=== PATIENT | male | born 1975 | race Caucasian/White ===

== ENCOUNTER → 2020-12-23 14:37 | Outpatient (BNV) | payer OTHER, SELFPAY | PROVIDERS: PCP Physician Assistant; Visit Provider Internal Medicine Medical Oncology | DX: C81.90 Hodgkin lymphoma, unspecified, unspecified site (principal) | CPT/HCPCS: 99213; 99214 ==

== ENCOUNTER 2021-03-27 15:33 | Outpatient (REF) | payer OTHER, SELFPAY ==
[2021-03-27 16:59] LABS: Basophils Percent Auto 0.4 % (0-2); Hemoglobin 15.8 g/dl (14.0-18.0); Imm Gran Abs Auto 0.03 X10*3/uL (0.00-0.03); Imm Gran Pct Auto 0.4 % (0.0-0.4); MANUAL DIFF FLAG SCAN; Mean Corpuscular Volume 92.4 fL (80-98); Monocytes Percent Auto 7.4 % (2-11); PLT CLUMP 1; SCAN SMEAR FLAG 1
[2021-03-27 17:01] LABS: Eosinophils Absolute Auto 0.1 X10*3/uL (0.0-0.4); Eosinophils Percent Auto 0.9 % (0-4); Hematocrit 46.1 % (42-52); Lymphocytes Absolute Auto 1.9 X10*3/uL (1.2-4.9); Lymphocytes Percent Auto 22.5 % (20-40); Mean Corpuscular HGB Conc 34.3 g/dl (31.0-36.0); Mean Corpuscular Hemoglobin 31.7 pg (27.0-33.0); Mean Platelet Volume 10.4 fL (9.4-12.4); Monocytes Absolute Auto 0.6 X10*3/uL (0.1-1.2); Neutrophils Absolute Auto 5.6 X10*3/uL (2.0-8.3); Neutrophils Percent Auto 68.4 % (45-73); Platelet Count 119 X10*3/uL (160-400); Red Blood Count 4.99 X10*6/uL (4.60-5.80); Red Cell Distribution Width 12.6 % (11.0-16.0); White Blood Count 8.2 X10*3/uL (4.8-10.8)
[2021-03-27 17:27] LABS: Alanine Aminotransferase 73 U/L (0-40); Albumin Level 4.2 g/dL (3.5-5.0); Alkaline Phosphatase 156 U/L (39-117); Anion Gap 14 (12-20); Aspartate Amino Transferase 81 U/L (5-37); Blood Urea Nitrogen 16 mg/dL (9-16); Calcium 9.3 mg/dL (8.4-10.2); Carbon Dioxide 25 mmol/L (22-29); Chloride 105 mmol/L (96-108); Estimated Glomerular Filt Rate > 60; Glucose Random 85 mg/dL (60-115); Lactate Dehydrogenase 276 U/L (118-273); Potassium 4.3 mmol/L (3.3-5.1); Sodium 140 mmol/L (135-145); Total Protein 7.1 g/dL (6.5-8.0)
[2021-03-27 17:53] LABS: SLIDE REVIEW VERIFIED
== END 2021-03-27 15:34 | disposition home or self-care (01) ==
LOC: HO.LAB 15:33
PROVIDERS: PCP Physician Assistant; Visit Provider Internal Medicine Medical Oncology
DX: D69.6 Thrombocytopenia, unspecified (principal); C81.90 Hodgkin lymphoma, unspecified, unspecified site
CPT/HCPCS: 36415; 80053; 83615; 85025

== ENCOUNTER 2022-03-26 16:03 | Outpatient (REF) | payer OTHER, SELFPAY ==
[2022-03-27 13:32] LABS: H Pylori Breath Test Positive (Negative)
== END 2022-03-26 16:04 | disposition home or self-care (01) ==
LOC: HO.LNP 16:03
PROVIDERS: Visit Provider Physician Assistant
DX: A04.8 Other specified bacterial intestinal infections (principal)
CPT/HCPCS: 83013

== ENCOUNTER 2022-04-05 06:14 | Outpatient (REF) | payer OTHER, SELFPAY ==
[2022-04-05 07:19] LABS: Hematocrit 49.9 % (42.0-52.0); Hemoglobin 17.5 g/dl (14.0-18.0); Mean Corpuscular HGB Conc 35.1 g/dl (31.0-36.0); Mean Corpuscular Hemoglobin 32.1 pg (27.0-33.0); Mean Corpuscular Volume 91.4 fL (80.0-98.0); Mean Platelet Volume 10.2 fL (9.4-12.4); Platelet Count 106 X10*3/uL (160-400); Red Blood Count 5.46 X10*6/uL (4.60-5.80); White Blood Count 6.8 X10*3/uL (4.8-10.8)
[2022-04-05 07:22] LABS: Estimated Average Glucose 100 mg/dL; Hemoglobin A1c % 5.1 %
[2022-04-05 07:47] LABS: Alanine Aminotransferase 145 U/L (0-40); Albumin Level 4.5 g/dL (3.5-5.0); Alkaline Phosphatase 125 U/L (39-117); Anion Gap 15 (12-20); Aspartate Amino Transferase 191 U/L (5-37); Bilirubin Total 1.5 mg/dL (0.0-1.0); Blood Urea Nitrogen 16 mg/dL (9-16); Calcium 9.6 mg/dL (8.4-10.2); Carbon Dioxide 27 mmol/L (22-29); Chloride 101 mmol/L (96-108); Cholesterol 228 mg/dL; Estimated Glomerular Filt Rate > 60; Glucose Fasting 108 mg/dL (60-99); HDL Cholesterol 53 mg/dL; LDL Cholesterol Calculated 156 mg/dl; Potassium 3.2 mmol/L (3.3-5.1); Sodium 140 mmol/L (135-145); Triglycerides 99 mg/dL
[2022-04-05 08:12] LABS: Prostate Specific Antigen Scr 0.35 ng/mL (<0.05-4.0); TSH reflex Free T4 3.94 uIU/mL (0.32-4.0)
[2022-04-05 08:19] LABS: Creatinine Urine 191.66 mg/dL; Microalbum/Creatinine Ratio Ur 131.4 ug/mg cr
== END 2022-04-05 06:15 | disposition home or self-care (01) ==
LOC: HO.LAB 06:14
PROVIDERS: PCP Physician Assistant; Visit Provider Physician Assistant
DX: Z12.5 Encounter for screening for malignant neoplasm of prostate (principal); I10 Essential (primary) hypertension; E66.01 Morbid (severe) obesity due to excess calories; Z68.41 Body mass index [BMI] 40.0-44.9, adult
CPT/HCPCS: 36415; 80053; 80061; 82043; 83036; 84153; 84443; 85027

== ENCOUNTER 2022-08-10 09:52 | Day surgery (SDC) | payer OTHER, SELFPAY ==
[2022-08-07 10:39] VITALS: BMI 41.6
--- NOTE | 2022-08-09 12:06 | HO.ANESPROP2 ---
Documented by User: Chary Franz NP 08/09/22 12:07 HPI - Anesthesia Eval Consult details Narrative: 47yo M for Upper Endoscopy and Colonoscopy PMFSH Active Problems Active Problems: All Active Problems (Updated 04/10/22 @ 15:07 by Tigre Richard PA-C) Umbilical hernia (Acute) Inguinal hernia (Acute) H. pylori infection (Acute) Encounter for screening colonoscopy (Acute) Postprandial abdominal bloating (Acute) Obese (Acute) RLQ abdominal pain (Acute) Annual physical exam (Acute) HTN (hypertension) (Acute) Gout attack (Acute) Hodgkins lymphoma (Acute) Past Medical History Medical History Hx of lymphoma, non-Hodgkins Family History Family History Mother Diabetes Father Hypertension Surgical History Surgical History History of carpal tunnel surgery History of surgery on left wrist Social History Social History Household Members Other:: Housing: House Alcohol intake: current Alcohol intake frequency: holidays/special occasions only Alcohol type: beer Patient Tobacco Use Status: Never used Tobacco e-Cigarette/Vaping Use: Never Used Use of substances other than those prescribed or required for medical reasons: No Are you DNR?: No Advance Directives: No Advance Directives Information Provided: Yes Current occupational status: employed Current occupation: [employer] Cognitive needs: No Hearing needs: No Vision needs: No Meds Allergies Allergy/AdvReac Type Severity Reaction Status Date / Time No Known Allergies Allergy Verified 04/10/22 14:59 Exam Exam Date and Time: August 09, 2022 1206 Height,Weight and Vital Signs: Height 5 ft 7 in Weight 120.656 kg Pertinent Lab Results Pertinent Lab Results: Laboratory Tests 04/05/22 04/05/22 06:33 06:33 WBC 6.8 Hgb 17.5 Hct 49.9 Plt Count 106 L Sodium 140 Potassium 3.2 L D Chloride 101 Carbon Dioxide 27 BUN 16 Creatinine 1.09 Assessment and Plan Assessment Anesthesia Assessment: Chart Reviewed Documented by User: Chiquita Woods MD 08/10/22 10:50 PMFSH Active Problems Active Problems: All Active Problems (Updated 04/10/22 @ 15:07 by Tigre Richard PA-C) Umbilical hernia (Acute) Inguinal hernia (Acute) H. pylori infection (Acute) Encounter for screening colonoscopy (Acute) Postprandial abdominal bloating (Acute) Obese (Acute)- BMI 38.5 RLQ abdominal pain (Acute) Annual physical exam (Acute) HTN (hypertension) (Acute) Gout attack (Acute)- meds prn Hodgkins lymphoma (Acute) Snores. Denies ELAN but never had sleep study Past Medical History Medical History Hx of lymphoma, non-Hodgkins Family History Family History Mother Diabetes Father Hypertension Family history of problems with anesthesia: No Surgical History Surgical History History of carpal tunnel surgery History of surgery on left wrist History of Problems with Anesthesia: No Social History Social History Household Members Other:: Housing: House Alcohol intake: current Alcohol intake frequency: holidays/special occasions only Alcohol type: beer Patient Tobacco Use Status: Never used Tobacco e-Cigarette/Vaping Use: Never Used Use of substances other than those prescribed or required for medical reasons: No Are you DNR?: No Advance Directives: No Advance Directives Information Provided: Yes Current occupational status: employed Current occupation: [employer] Cognitive needs: No Hearing needs: No Vision needs: No Meds Allergies Allergy/AdvReac Type Severity Reaction Status Date / Time No Known Allergies Allergy Verified 04/10/22 14:59 Exam Height,Weight and Vital Signs: Height 5 ft 7 in Weight 120.656 kg Vital Signs Temp Pulse Resp BP Pulse Ox O2 Del Method 08/10/22 10:15 99.1 F 98 18 194/103 H 100 Room Air Airway Mallampati Class: III TM Dist: >3cm Neck ROM: Full Loose/Missing/Broken Teeth: No (Denies broken or loose teeth) Heart: RRR Lungs: CTAB Assessment and Plan Assessment Anesthesia Assessment: Anesthesia Plan Discussed Final Anesthetic Review Family History of Problems with Anesthesia: No History of Problems with Anesthesia: No NPO: Yes ASA Class: III Final Preanesthetic Review: No Changes in Pt Med Stat, Meds/Allgs Chart Reviewed, Consent Obtained/Reviewed and Anes Risks/Benef Reviewed Patient Risk: Intermediate Procedure Risk: Low Assessment/Block/Sedation in SS: Assess/Block/Sedation-SS Anesthetic Plan Anesthetic Plan: MAC: Disposition: Standard PACU
[2022-08-10 10:15] VITALS: BP 194/103; PULSE 98; RESP 18; TEMP 37.3; O2SAT 100; BMI 38.5
[2022-08-10] MEDS: Lactated Ringers 1,000 ML 100 ML IVCONT (10:41)
--- NOTE | 2022-08-10 11:05 | MHC.SHP ---
Pre-Procedural Eval Section A Date of Service: 08/10/22 The patient is an INPATIENT: No The History & Physical has been completed within 30 days and I have reviewed it.: No Section B Chief Complaint: Right lower quadrant pain,screening Details of Present Illness: colon cancer screening, abdominal pain and bloating Relevant Family History (Specify if Yes): No Relevant Social History: None Medical History: Significant History (Hx of lymphoma, non-Hodgkins) History of Previous Operations: Relevant previous surgery/procedure and date(s) (History of carpal tunnel surgery History of surgery on left wrist) Allergies: Allergies Allergy/AdvReac Type Severity Reaction Status Date / Time No Known Allergies Allergy Verified 04/10/22 14:59 Review of Systems Sugical H&P ROS: Negative: Constitution, Cardiovascular, Respiratory and Gastrointestinal Exam Surgical H&P Exam: Normal: Heart, Normal: Lungs, Normal: Extremities and Normal: Abdomen Plan Diagnosis/Plan: Unchanged I have reviewed the history and physical and performed a pertinent physical examination on my patient. No changes have occurred unless specified.
--- NOTE | 2022-08-10 11:19 | P.BOP_ITS ---
Brief Operative Note Date of Service: 08/10/22 Pre-op diagnosis: colon cancer screening, abdominal pain and bloating Post-op diagnosis: other ( GERD, gastritis, colon polyps, diverticulosis, hemorrhoids) Procedure: EGD WITH BIOPSY. COLONOSCOPY TO CECUM WITH BIOPSIES AND SNARE POLYPECTOMY Surgeon: Kiel Taylor MD Anesthesia: MAC Was an Drywall Finishing Foreman used for this Procedure?: Yes Drywall Finishing Foreman: Toribio Izaguirre Estimated blood loss (mL): 0 Pathology: other (A) BX Small Bowel (R/O Celliac's) B) BX Gastric Antrum C) BX Gastric Fold D) BX GE Junction (R/O Sanabria's) E) Polyp Cecum F) Polyp Ascending Colon G)) Condition: stable Disposition: PACU
--- NOTE | 2022-08-10 11:36 | W.PM.OPN ---
Operative Note Operative Note Date of Service: 08/10/22 Narrative: Pre-op diagnosis: colon cancer screening, abdominal pain and bloating Post-op diagnosis:?other ( GERD, gastritis, colon polyps, diverticulosis, hemorrhoids) Surgeon: Kiel Taylor MD Anesthesia:?MAC FLEXIBLE TRANSORAL UPPER GASTROINTESTINAL ENDOSCOPY WITH BIOPSIES AND COLONOSCOPY TILL CECUM WITH BIOPSIES AND SNARE POLYPECTOMY UPPER ENDOSCOPY Consent: Indications for the procedure and potential complications of bleeding, perforation, reaction to medications and missed diagnosis were discussed with the patient and informed consent was obtained. Instrument: Olympus GIF H 190 mid size upper endoscope Monitoring: Vital signs and clinical assessment, continuous EKG monitoring, Pulse oximetry, Carbon Dioxide monitoring and blood pressure monitoring were done throughout the procedure. Procedure: The patient was placed in the left lateral decubitis position and pre-procedure medications were administered and a bite block was placed. The endoscope was inserted into the mouth and advanced under direct vision to the third part of duodenum. A careful inspection was made as the upper endoscope was withdrawn including a retroflexed examination of the proximal stomach; Findings and interventions are described below. Findings: Larynx: Normal Esophagus: GE junction at 40 cms. Irregular Z line with ? 1 cms tongue of possible Sanabria's - biopsied. Stomach: Moderate diffuse gastric erythema with submucosal hemorrhages and prominent gastric folds in the body of the stomach - biopsied . Antral biopsies were obtained to check for H Pylori. Grade 2 flap valve on retroflexed examination of the cardia. Duodenum: Normal bulb and descending duodenum. Biopsies were obtained from 3rd part of the duodenum to check for celiac sprue Intervention: Biopsies as noted above COLONOSCOPY PROCEDURE NOTE Consent: Indications for the procedure and potential complications of bleeding, perforation, reaction to medications and missed diagnosis were discussed with the patient and informed consent was obtained. Instrument: Olympus PCF H 190 L variable stiffness pediatric colonoscope Monitoring: Vital signs and clinical assessment, intermittent blood pressure monitoring, continuous EKG monitoring, Pulse oximetry and Carbon Dioxide monitoring were done throughout the procedure. Colon withdrawl time was 22 minutes. Procedure: The patient was placed in the left lateral decubitis position and pre-procedure medications were administered. After a digital rectal examination of the ano-rectum, the video colonoscope was inserted into the rectum and advanced through the colon to the cecum. The colonoscope was slowly withdrawn in a retrograde panoramic fashion and the colon mucosa was carefully examined including a retroflexed view of the rectum. Findings and interventions are described below. Procedure Difficulty: : Without difficulty Findings: Terminal Ileum: Distal 10 cms was examined. Normal mucosa with a few 4-5 mm benign-appearing nodules - biopsied Cecum: A 7-8 mm sessile polyp removed with a cold snare Ascending Colon: A 10 mm sessile polyp in the proximal AC - removed with a cold snare Transverse Colon: Normal Descending Colon: Normal Sigmoid Colon: A 10 mm sessile polyp removed with a cold snare. Moderate diverticulosis Rectum: Three 10 -15 mm sessile polyps - one in the proximal rectum and two in the distal rectum - removed with a hot snare Ano-rectum: Moderate internal hemorrhoids Colon preparation: Good after some irrigation Impression and Post Procedure Diagnosis: Endoscopy Findings: ESOPHAGUS: GE junction at 40 cms. Irregular Z line with ? 1 cms tongue of possible Sanabria's - biopsied. STOMACH: Moderate diffuse gastric erythema with submucosal hemorrhages and prominent gastric folds in the body of the stomach - biopsied . Antral biopsies were obtained to check for H Pylori. DUODENUM: Normal - biopsied to check for celiac sprue Colonoscopy Findings: Six small to medium sized polyps removed Moderate diverticulosis seen in the sigmoid colon Moderate hemorrhoids on retroflexed exam. Plan: Await pathology results Patient has an appointment on 08/23/22 in the GI Clinic with MALLIKA Galaviz . Repeat Colonoscopy interval based on path results - in 3-5 years if polyps are adenomatous and 10 years if polyps are hyperplastic. Above findings were reviewed with the patient and Gastritis, colon polyps and diverticulosis handouts were given in the discharge area
[2022-08-10 12:22] VITALS: BP 128/89; PULSE 99; RESP 18; TEMP 36.1; O2SAT 97
[2022-08-10 12:37] VITALS: BP 152/86; PULSE 96; RESP 18; TEMP 36.1; O2SAT 98
== END 2022-08-10 13:06 | disposition home or self-care (01) ==
PROVIDERS: PCP Physician Assistant; Visit Provider Internal Medicine Gastroenterology
PROC: (CPT 45385; principal; 2022-08-10 11:10)
DX: Z12.11 Encounter for screening for malignant neoplasm of colon (principal); D12.0 Benign neoplasm of cecum; D12.2 Benign neoplasm of ascending colon; D12.5 Benign neoplasm of sigmoid colon; D3A.026 Benign carcinoid tumor of the rectum; K57.30 Diverticulosis of large intestine without perforation or abscess without bleeding; K64.8 Other hemorrhoids; K21.9 Gastro-esophageal reflux disease without esophagitis; K29.50 Unspecified chronic gastritis without bleeding; B96.81 Helicobacter pylori [H. pylori] as the cause of diseases classified elsewhere; Z85.72 Personal history of non-Hodgkin lymphomas; Z79.899 Other long term (current) drug therapy
CPT/HCPCS: 45385; 45380; 43239; 88305; 88341; 88342; 88360; J2250

== ENCOUNTER 2022-10-04 08:37 | Outpatient (REF) | payer OTHER, SELFPAY ==
[2022-10-05 14:48] LABS: H Pylori Breath Test Positive (Negative)
== END 2022-10-04 08:38 | disposition home or self-care (01) ==
LOC: HO.LNP 08:37
PROVIDERS: PCP Physician Assistant; Visit Provider Physician Assistant
DX: A04.8 Other specified bacterial intestinal infections (principal)
CPT/HCPCS: 83013

== ENCOUNTER → 2022-11-30 08:10 | Outpatient (BNVA) | payer OTHER, SELFPAY | PROVIDERS: PCP Physician Assistant; Referring Provider Physician Assistant; Visit Provider Physician Assistant | DX: Z13.89 Encounter for screening for other disorder (principal) ==

== ENCOUNTER 2022-11-30 15:52 | Outpatient (REF) | payer OTHER, SELFPAY ==
[2022-12-02 13:35] LABS: H Pylori Breath Test Negative (Negative)
== END 2022-11-30 15:53 | disposition home or self-care (01) ==
LOC: HO.LNP 15:52
PROVIDERS: Visit Provider Physician Assistant
DX: A04.8 Other specified bacterial intestinal infections (principal)
CPT/HCPCS: 83013

== ENCOUNTER 2023-05-30 14:01 | Outpatient (AMB) | payer OTHER, SELFPAY ==
--- NOTE | 2023-05-30 14:05 | MHC.OFFVIS ---
Intake Vital Signs 05/30/23 14:06 Height 5 ft 8 in Weight 271 lb 2.697 oz BMI 41.2 BP 157/84 H Blood Pressure Location Lt brachial Position Sitting Pulse 86 Intake Visit Reasons: 9 month follow up Intake Note: Walter presents in the office as a 9 month follow up. CC: He states that he is not having any concerns at this time. 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 Taylor Findings of H pylori gastritis as well as multiple adenomas in the colon and a rectal any T. We had referred him to [facility] for a rectal EUS-by Dr. Villegas Findings 3-4 mm sessile polyp in the distal transverse/splenic flexure region removed Scarring in the distal rectum in region suspicious for prior neuroendocrine tumor resection-biopsies taken to assess for recurrence No evidence of inflammation, ulcerations or erosion no nodularity in the rectum Internal/external hemorrhoids moderate-sized EUS-exam revealed normal mural architecture throughout the rectum. No evidence of intramural mass lesion noted. No evidence of perirectal lymphadenopathy Pathology showed: 1-colon, transverse polyp polypectomy Tubular adenoma, fragments 2-rectum, distal scar biopsy Colonic mucosa with mild crypt distortion No tumor identified Recommend colonoscopy 1 year-April 2024 [facility] Medical History Hx of lymphoma, non-Hodgkins Surgical History History of carpal tunnel surgery History of colonoscopy History of endoscopy History of surgery on left wrist Family History Mother Diabetes Father Hypertension Social History Household Members: Spouse and Children Household Members Other:: Housing: House Are you a primary med care manager to a significant other at home: No Do you presently have visiting nurse or other home services: No Alcohol intake: current Alcohol intake frequency: holidays/special occasions only Alcohol type: beer Patient Tobacco Use Status: Never used Tobacco e-Cigarette/Vaping Use: Never Used service: No Current occupational status: employed Current occupation: [employer] Cognitive needs: No Hearing needs: No Vision needs: No Review of Systems Const All systems reviewed & are unremarkable except as noted in HPI and below Card Denies chest pain and Denies dyspnea Resp Denies dyspnea GI Denies abdominal pain, Denies hematochezia, Denies change in bowel habits, Denies GI cramping, Denies nausea and Denies vomiting Psych Reports no additional complaints and Denies depression Physical Exam Vital Signs: Last Vital Signs Pulse 86 05/30/23 14:06 BP 157/84 H 05/30/23 14:06 BMI result Body Mass Index 41.2 Const General: cooperative, healthy appearing, comfortable, no acute distress and well groomed Orientation/consciousness: patient oriented x3 Limitations: no limitations Eyes Sclerae: sclerae normal Resp Effort & Inspection: normal respiratory effort and able to speak in complete sentences Auscultation: clear to auscultation bilaterally Cardio Rate: regular rate Rhythm: regular rhythm Heart sounds: S1 normal heart sound present and S2 normal heart sound present Neuro General: patient oriented x3 Extrem General: Yes full ROM Psych Appearance: grossly normal and well kempt Mental Status: mental status grossly normal Speech and movement: Normal speech and movement present and Clear speech present Affect: normal affect Attitude: cooperative Thought process: Normal thought process present Thought content: Normal thought content present Judgement: Good judgement present (Psych) Assessment & Plan Assessment & Plan (1) Rectal carcinoid tumor: Comment: Patient expresses his gratitude for being diagnosed and treated-use very happy with the outcome [facility] Code[facility]s): D3A.026 - Benign carcinoid tumor of the rectum Plan: Repeat asymptomatic colonoscopy 1 year April 2024 Plan Pathology showed: 1-colon, transverse polyp polypectomy Tubular adenoma, fragments 2-rectum, distal scar biopsy Colonic mucosa with mild crypt distortion No tumor identified Recommend colonoscopy 1 year-April 2024 Patient Instructions: Very pleasant 48-year-old male -follows up after colonoscopy, referred to [facility] for rectal EUS- Discussed importance of all first-degree relatives begin screening by age 37 (typically go back 10 years) Reviewed procedure report and pathology-from previous EGD colonoscopy as well as EUS with Dr. Villegas Encouraged to call with any questions or concerns. We appreciate the opportunity assist in care this pleasant Gent Coding Level of Care Code Est Pt Level 3 (83799) Diagnoses Rectal carcinoid tumor D3A.026 Time Spent (min) 30
[2023-05-30 14:06] VITALS: BP 157/84; PULSE 86; BMI 41.2
== END 2023-05-30 14:35 | disposition home or self-care (01) ==
PROVIDERS: PCP Physician Assistant; Visit Provider Physician Assistant
DX: D3A.026 Benign carcinoid tumor of the rectum (principal)
CPT/HCPCS: 99213

== ENCOUNTER → 2023-05-30 14:01 | Outpatient (BNVA) | payer OTHER, SELFPAY | PROVIDERS: PCP Physician Assistant; Visit Provider Physician Assistant ==

== ENCOUNTER 2023-09-10 14:00 | Outpatient (AMB) | payer OTHER, SELFPAY ==
--- NOTE | 2023-09-10 14:59 | A.OFFVIS_ITS ---
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 States he has constant numbness and would like to discuss surgery.NO EMG for his left hand. Hx of right CTR 07/2016 at [facility]. 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 He complains of constant numbness in the thumb, index, and middle fingers of his left hand. He has a hx of right carpal tunnel release done 07/[address] [facility]. he says the symptoms are the same in his left hand and he would like to discuss surgery. FOR[facility]LY [facility], [facility] Medical History Hx of lymphoma, non-Hodgkins Surgical History History of carpal tunnel surgery History of colonoscopy History of endoscopy History of surgery on left wrist Family History Mother Diabetes Father Hypertension Social History (Updated 09/10/23 @ 15:07 by Stacy Tello [facility]) Household Members: Spouse and Children Household Members Other:: Housing: House Are you a primary field care advocate to a significant other at home: No Do you presently have visiting nurse or other home services: No Alcohol intake: current Alcohol intake frequency: holidays/special occasions only Alcohol type: beer Patient Tobacco Use Status: Never used Tobacco e-Cigarette/Vaping Use: Never Used service: No Current occupational status: employed 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 Cognitive needs: No Hearing needs: No Vision needs: No Review of Systems Const All systems reviewed & are unremarkable except as noted in HPI and below Physical Exam Vital Signs: BMI result Body Mass Index 42.6 Const General: cooperative, healthy appearing and no acute distress Orientation/consciousness: patient oriented x3 HEENT Head: Yes normocephalic and Yes atraumatic Eyes EOM: EOMs intact bilaterally Resp Effort & Inspection: normal respiratory effort and able to speak in complete sentences Cardio Jugular venous distension: no JVD Skin General skin exam: turgor normal Rashes: no rashes Neuro General: patient oriented x3 Extrem Other: Evaluation of left Upper Extremity: The patient is alert, oriented, and in no acute distress Neuro: Median, Ulnar, Radial nerves motor and sensory intact except for dense numbness in the median nerve distribution of his left hand. Normal sensation to the small finger Good finger cross and APB muscle belly firing Vascular: Cap refill brisk ROM: He can make a fist and extend all his digits No locking or catching Skin: No lacerations or abrasions. General: No Ecchymosis. No Erythema or evidence of infection. Psych Appearance: grossly normal Affect: normal affect Attitude: cooperative Assessment & Plan Assessment & Plan (1) Numbness of left hand: Code(s): R20.0 - Anesthesia of skin (2) History of carpal tunnel surgery: Comment: R wrist Code(s): Z98.890 - Other specified postprocedural states Plan Assessment & Plan: 1. Left hand numbness With dense numbness in the median nerve distribution Normal sensation to the small finger I educated him about carpal tunnel syndrome I ordered a NCS to assess for peripheral nerve compression He will follow up with a PA when completed for review. If findings are positive he may be signed up for a carpal tunnel release at his next appointment 2. History of right carpal tunnel release Done in 07/[address] [facility] No complaints of numbness today Scribed for Cecilia Pichardo MD by Dawson Zuniga, medical device sales representative, on 09/10/23 at 3:15 PM, EST. Orders: Orders NE nerve conduction velocity Today R20.0 - Anesthesia of skin, R20.2 - Paresthesia of skin Coding Level of Care Code New Pt Level 3 (90502) Diagnoses Numbness of left hand R20.0 History of carpal tunnel surgery Z98.890
[2023-09-10 15:03] VITALS: BMI 42.6
== END 2023-09-10 15:14 | disposition home or self-care (01) ==
PROVIDERS: PCP Physician Assistant; Visit Provider Orthopaedic Surgery
DX: R20.0 Anesthesia of skin (principal); G56.01 Carpal tunnel syndrome, right upper limb
CPT/HCPCS: 99203

== ENCOUNTER → 2023-09-10 14:00 | Outpatient (BNVA) | payer OTHER, SELFPAY | PROVIDERS: PCP Physician Assistant; Visit Provider Orthopaedic Surgery ==

== ENCOUNTER 2023-10-23 14:15 | Outpatient (REF) | payer OTHER, SELFPAY ==
--- NOTE | 2023-10-23 14:18 | EMG_ITS ---
Chief complaint: Left hand numbness, 1st to 4th digits. History of right Carpal Tunnel Syndrome surgery, symptoms resolved. Reason for referral: Evaluate for Carpal Tunnel Syndrome Referred by: Dr. Pichardo Procedure done: Left upper extremity NCS/EMG Precautions and/or limitations: None The limb temperature was monitored continuously and remained between 32-36 degrees C during the performance of the NCS. Nerve Conduction Studies Anti Sensory Summary Table ?Stim Site NR Onset (ms) Norm Onset (ms) Peak (ms) Norm Peak (ms) O-P Amp (?V) Norm O-P Amp Site1 Site2 Delta-0 (ms) Dist (cm) Brent (m/s) Norm Brent (m/s) Left Median Anti Sensory (2nd Digit) Wrist ? 4.4 5.5 <3.6 5.2 >10 Wrist 2nd Digit 4.4 14.0 32 Left Radial Anti Sensory (Thumb) Forearm ? 1.9 2.5 <3.1 16.7 Forearm Thumb 1.9 0.0 Left Ulnar Anti Sensory (5th Digit) Wrist ? 2.3 3.6 <3.7 23.2 >15.0 Wrist 5th Digit 2.3 14.0 61 Motor Summary Table ?Stim Site NR Onset (ms) Norm Onset (ms) O-P Amp (mV) Norm O-P Amp iAmp (mV) Amp (1st) (%) Site1 Site2 Delta-0 (ms) Dist (cm) Brent (m/s) Norm Brent (m/s) Left Median Motor (Abd Poll Brev) Wrist ? 5.9 <3.9 7.7 >4.5 8.9 100.0 Elbow Wrist 3.9 22.0 56 >45 Elbow ? 9.8 7.1 8.2 92.2 Left Ulnar Motor (Abd Dig Minimi) Wrist ? 2.8 <3.0 9.3 >5 12.1 100.0 B Elbow Wrist 3.6 29.5 82 >45 B Elbow ? 6.4 8.0 10.6 86.0 A Elbow B Elbow 1.4 10.0 71 >45 A Elbow ? 7.8 7.8 10.5 83.9 EMG ?Side Muscle Nerve Root Ins Act Fibs Psw Amp Dur Poly Recrt Int Pat Comment Left 1stDorInt Ulnar C8-T1 Nml Nml Nml Nml Nml 0 Nml Complete Left FlexCarRad Median C6-7 Nml Nml Nml Nml Nml 0 Nml Complete Left Biceps Musculocut C5-6 Nml Nml Nml Nml Nml 0 Nml Complete Left Triceps Radial C6-7-8 Nml Nml Nml Nml Nml 0 Nml Complete Left Deltoid Axillary C5-6 Nml Nml Nml Nml Nml 0 Nml Complete FINDINGS: Left median motor nerve showed prolonged distal latency, normal amplitude and normal conduction velocity. Left median sensory nerve showed prolonged peak latency and small amplitude. All other nerves tested were within normal. Concentric needle EMG was performed in selected muscles of the left upper extremity. Study did not reveal signs of electric abnormalities as shown in the table below. IMPRESSION: 1. This is an abnormal study. 2. There is electrodiagnostic evidence for left moderate-severe median neuropathy at the wrist, consistent with carpal tunnel syndrome. 3. There is no electrodiagnostic evidence for ulnar neuropathy, brachial plexopathy, or cervical radiculopathy. Thank you for your kind referral. Ericka Brito MD, DOE Board Certified, [place] Board of [employer] and Rehabilitation (ABPMR) Board Certified, [place] Board of Electrodiagnostic Medicine (ABEM) CODIN [id number] MTDD
== END 2023-10-23 14:16 | disposition home or self-care (01) ==
LOC: HO.NEURO 14:15
PROVIDERS: PCP Physician Assistant; Visit Provider Orthopaedic Surgery
DX: R20.0 Anesthesia of skin (principal); R20.2 Paresthesia of skin
CPT/HCPCS: 95886; 95909

== ENCOUNTER → 2023-10-23 14:18 | Outpatient (BNV) | payer OTHER, SELFPAY | PROVIDERS: PCP Physician Assistant; Visit Provider Physical Medicine & Rehabilitation | DX: G56.02 Carpal tunnel syndrome, left upper limb (principal) | CPT/HCPCS: 95886; 95909 ==

== ENCOUNTER 2023-10-29 15:12 | Outpatient (AMB) | payer OTHER, SELFPAY ==
[2023-10-29 15:20] VITALS: BMI 42.6
--- NOTE | 2023-10-29 15:20 | A.OFFVIS_ITS ---
Intake Vital Signs 10/29/23 15:20 Height 5 ft 8 in Weight 280 lb BMI 42.6 Intake Visit Reasons: OV- EMG Review/ CTS Intake Note: Walter 48 yr old male presents today for his EMG review and to discus surgery. Allergies No Known Allergies Allergy (Verified 10/29/23 15:21) HPI OV- EMG Review/ CTS HPI Details Walter is a 48 year old right hand dominant man who returns for a NCS review of his left hand numbness He complains of constant numbness in the thumb, index, and middle fingers of his left hand. He has a hx of right carpal tunnel release done 07/2016 at [facility]. [facility] Medical History (Updated 10/29/23 @ 15:32 by Dawson Zuniga) Hx of lymphoma, non-Hodgkins Surgical History (Updated 09/10/23 @ 15:15 by Dawson Zuniga) History of endoscopy History of colonoscopy History of carpal tunnel surgery History of surgery on left wrist Family History Mother Diabetes Father Hypertension Social History (Updated 09/10/23 @ 15:07 by MARCIO Rojas) Household Members: Spouse and Children Household Members Other:: Housing: House Are you a primary animal care giver to a significant other at home: No Do you presently have visiting nurse or other home services: No Alcohol intake: current Alcohol intake frequency: holidays/special occasions only Alcohol type: beer Patient Tobacco Use Status: Never used Tobacco e-Cigarette/Vaping Use: Never Used service: No Current occupational status: employed 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 Cognitive needs: No Hearing needs: No Vision needs: No Physical Exam Vital Signs: BMI result Body Mass Index 42.6 Extrem Other: Evaluation of left Upper Extremity: The patient is alert, oriented, and in no acute distress Neuro: Median, Ulnar, Radial nerves motor and sensory intact except for dense numbness in the median nerve distribution of his left hand. Normal sensation to the small finger Good finger cross and APB muscle belly firing Vascular: Cap refill brisk ROM: He can make a fist and extend all his digits No locking or catching Nerve Conduction Study IMPRESSION: 1. This is an abnormal study. 2. There is electrodiagnostic evidence for left moderate-severe median neuropathy at the wrist, consistent with carpal tunnel syndrome. 3. There is no electrodiagnostic evidence for ulnar neuropathy, brachial plexopathy, or cervical radiculopathy. Ericka Brito MD, DOE 10/23/23 Assessment & Plan Assessment & Plan (1) History of carpal tunnel surgery: Comment: R wrist Code(s): Z98.890 - Other specified postprocedural states (2) Carpal tunnel syndrome of left wrist: Code(s): G56.02 - Carpal tunnel syndrome, left upper limb Plan Assessment & Plan: 1. Left carpal tunnel syndrome, moderate-severe With Dense numbness I educated him about this condition I discussed operative and non-operative treatment options The patient would like to proceed with surgery The risks and benefits of operative treatment were discussed with the patient and the patient wishes to proceed with surgery. These risks include, but are not limited to risk of damage to blood vessels, nerves, tendons, infection, recurrence, incomplete relief of preoperative symptoms, persistent pain, possible need for further surgery and the risks associated with regional blocks and anesthesia. The plan is to take the patient to the operating room sometime in the next few weeks for the following procedures: 1. Left carpal tunnel release, under local All of the preoperative paperwork including the consent was reviewed today. All the patient's questions were answered. The patient understands that they will be contacted by our flight crew scheduler soon to schedule this procedure. He is planning to travel to [place] next month to visit family, and would like to have surgery after he returns. He denies Diabetes, blood thinners, asthma, heart, lung, kidney issues 2. History of right carpal tunnel release Done in 07/2016 at [facility] No complaints of numbness today Scribed for Cecilia Pichardo MD by Dawson Zuniga, biomedical repair technician, on 10/29/23 at 3:30 PM, EST. Coding Level of Care Code Est Pt Level 4 (17649) Diagnoses History of carpal tunnel surgery Z98.890 Carpal tunnel syndrome of left wrist G56.02
== END 2023-10-29 15:34 | disposition home or self-care (01) ==
PROVIDERS: PCP Physician Assistant; Visit Provider Orthopaedic Surgery
DX: G56.02 Carpal tunnel syndrome, left upper limb (principal)
CPT/HCPCS: 99214

== ENCOUNTER → 2023-10-29 15:12 | Outpatient (BNVA) | payer OTHER, SELFPAY | PROVIDERS: PCP Physician Assistant; Visit Provider Orthopaedic Surgery ==

== ENCOUNTER 2023-12-31 15:17 | Outpatient (AMB) | payer OTHER, SELFPAY ==
--- NOTE | 2023-12-31 15:23 | A.OFFVIS_ITS ---
Intake Vital Signs 12/31/23 15:24 Height 5 ft 8 in Weight 280 lb BMI 42.6 Intake Visit Reasons: Pre Op LT CTR 01/06/24 AR Intake Note: Walter 48 yr old male presents today for his pre-op visit for his left CTR scheduled for 01/06/[address] Pichardo. Allergies No Known Allergies Allergy (Verified 12/31/23 15:31) HPI Pre Op LT CTR 01/06/24 AR HPI Details Walter is a 48 year old right hand dominant man who returns to discuss treatment for his left carpal tunnel syndrome He continues to have constant numbness in the thumb, index, and middle fingers of his left hand. He has a hx of right carpal tunnel release done 07/2016 at [facility]. 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 he says his work has already approved several weeks off post-operatively. [facility] Medical History (Updated 10/29/23 @ 15:32 by Dawson Zuniga) Hx of lymphoma, non-Hodgkins Surgical History History of endoscopy History of colonoscopy History of carpal tunnel surgery History of surgery on left wrist Family History Mother Diabetes Father Hypertension Social History Household Members: Spouse and Children Household Members Other:: Housing: House Are you a primary child care associate to a significant other at home: No Do you presently have visiting nurse or other home services: No Alcohol intake: current Alcohol intake frequency: holidays/special occasions only Alcohol type: beer Patient Tobacco Use Status: Never used Tobacco e-Cigarette/Vaping Use: Never Used service: No Current occupational status: employed 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 Cognitive needs: No Hearing needs: No Vision needs: No Physical Exam Vital Signs: BMI result Body Mass Index 42.6 Extrem Other: Evaluation of left Upper Extremity: The patient is alert, oriented, and in no acute distress Neuro: Median, Ulnar, Radial nerves motor and sensory intact except for dense numbness in the median nerve distribution of his left hand. Normal sensation to the small finger and ulnar half of the ring finger Good finger cross and APB muscle belly firing Vascular: Cap refill brisk ROM: He can make a fist and extend all his digits No locking or catching Nerve Conduction Study IMPRESSION: 1. This is an abnormal study. 2. There is electrodiagnostic evidence for left moderate-severe median neuropathy at the wrist, consistent with carpal tunnel syndrome. 3. There is no electrodiagnostic evidence for ulnar neuropathy, brachial plexopathy, or cervical radiculopathy. Ericka Brito MD, DOE 10/23/23 Assessment & Plan Assessment & Plan (1) History of carpal tunnel surgery: Comment: R wrist Code(s): Z98.890 - Other specified postprocedural states (2) Carpal tunnel syndrome of left wrist: Code(s): G56.02 - Carpal tunnel syndrome, left upper limb Plan Assessment & Plan: 1. Left carpal tunnel syndrome, moderate-severe With Dense numbness I educated him about this condition I discussed operative and non-operative treatment options The patient would like to proceed with surgery The risks and benefits of operative treatment were discussed with the patient and the patient wishes to proceed with surgery. These risks include, but are not limited to risk of damage to blood vessels, nerves, tendons, infection, recurrence, incomplete relief of preoperative symptoms, persistent pain, possible need for further surgery and the risks associated with regional blocks and anesthesia. The plan is to take the patient to the operating room sometime on 01/06/24 for the following procedures: 1. Left carpal tunnel release, under local All of the preoperative paperwork including the consent was reviewed today. All the patient's questions were answered. He denies Diabetes, blood thinners, asthma, heart, lung, kidney issues 2. History of right carpal tunnel release Done in 07/2016 at [facility] No complaints of numbness today Scribed for Cecilia Pichardo MD by Dawson Zuniga, certified medical technician assistant, on 12/31/23 at 3:45 PM, EST. Coding Level of Care Code Est Pt Level 4 (09773) Diagnoses History of carpal tunnel surgery Z98.890 Carpal tunnel syndrome of left wrist G56.02
[2023-12-31 15:24] VITALS: BMI 42.6
== END 2023-12-31 16:17 | disposition home or self-care (01) ==
PROVIDERS: PCP Physician Assistant; Visit Provider Orthopaedic Surgery
DX: G56.02 Carpal tunnel syndrome, left upper limb (principal)
CPT/HCPCS: 99024

== ENCOUNTER → 2023-12-31 15:17 | Outpatient (BNVA) | payer OTHER, SELFPAY | PROVIDERS: PCP Physician Assistant; Visit Provider Orthopaedic Surgery ==

== ENCOUNTER 2024-01-06 08:08 | Day surgery (SDC) | payer OTHER, SELFPAY ==
[2024-01-06 08:25] VITALS: BP 153/58; PULSE 83; RESP 18; TEMP 36.8; O2SAT 98; BMI 41.9
--- NOTE | 2024-01-06 10:11 | MHC.SHP ---
Pre-Procedural Eval Section A - 24 Hr Update-Section A only Date of Service: 01/06/24 The patient is an INPATIENT: No Changes since office visit: No Cold of Flu in the past 2 weeks, No New Medical Problems, No Changes in Medication and No Patient answered all questions The patient has been examined within 24 hours of the surgical procedure. The History & Physical has been completed within 30 days and I have reviewed it.: Yes Section B - Complete if H&P > 30 days Chief Complaint: Carpal tunnel syndrome, left upper limb Allergies: Allergies Allergy/AdvReac Type Severity Reaction Status Date / Time No Known Allergies Allergy Verified 12/31/23 15:31 Plan I have reviewed the history and physical and performed a pertinent physical examination on my patient. No changes have occurred unless specified. Time Spent With Patient Time: Total time managing care of this patient today ____ minutes.
--- NOTE | 2024-01-06 10:11 | W.PM.OPN ---
Operative Note Operative Note Date of Service: 01/06/24 Narrative: Preop diagnosis: 1. Left Carpal tunnel syndrome Postop diagnosis: same Procedure: 1. Left Carpal tunnel release Surgeon: Cecilia Pichardo MD Anesthesia: local block using 1% lidocaine with epinephrine Findings: Thickened transverse carpal ligament. EBL: Less than 5 mL Specimens: None Complications: None Disposition: Brought to recovery room in stable condition Plan: Follow-up for 10-14 days for wound check and suture removal Indications: The patient is 48 years old, with left carpal tunnel syndrome that has been unresponsive to nonoperative management. The risks and benefits of operative treatment including but not limited to risk of damage to blood vessels, nerves, tendons, infection, persistent pain, persistent symptoms, or possible need for additional surgery were discussed with the patient and the patient wishes to proceed with surgery. Procedure: Once consent was obtained a local block was performed using a combination of 1% lidocaine with epinephrine. The patient was then brought back to the operating suite and placed on the operative table in supine position. The left upper extremity was prepped and draped in a standard surgical fashion. Once assured that we had a good block, a 2.0 cm longitudinal incision was made centered over the carpal tunnel. The incision was made through the skin to the subcutaneous tissues using a #15 blade. Dissection was made down to the level of the transverse carpal ligament with care being taken to protect the palmar cutaneous nerve. Once the transverse carpal ligament was clearly visualized, a longitudinal incision was made in the transverse carpal ligament 1st using a #15 blade, then using tenotomy scissors under direct visualization. Care was taken to look for and protect the motor branch of the median nerve when seen in this area. Once satisfied with our carpal tunnel release the wound was copiously irrigated with normal saline and hemostasis was obtained with a brief period of local pressure. The skin edges were reapproximated with some 5.0 nylon suture material and a sterile dressing was applied. The patient appears to have tolerated the procedure well and with no complications. All digits were well vascularized at the conclusion of the case.
[2024-01-06 11:57] VITALS: BP 159/58; PULSE 78; RESP 16; O2SAT 78
== END 2024-01-06 12:02 | disposition home or self-care (01) ==
PROVIDERS: PCP Physician Assistant; Visit Provider Orthopaedic Surgery
PROC: (CPT 64721; principal; 2024-01-06 10:40)
DX: G56.02 Carpal tunnel syndrome, left upper limb (principal); R20.0 Anesthesia of skin; Z85.72 Personal history of non-Hodgkin lymphomas; Z98.890 Other specified postprocedural states
CPT/HCPCS: 64721; J0171

== ENCOUNTER → 2024-01-06 08:08 | Outpatient (BNV) | payer OTHER, SELFPAY | PROVIDERS: PCP Physician Assistant; Visit Provider Orthopaedic Surgery | DX: G56.02 Carpal tunnel syndrome, left upper limb (principal) | CPT/HCPCS: 64721 ==

== ENCOUNTER 2024-01-21 15:08 | Outpatient (AMB) | payer OTHER, SELFPAY ==
[2024-01-21 15:28] VITALS: BMI 41.8
--- NOTE | 2024-01-21 15:28 | A.OFFVIS_ITS ---
Intake Vital Signs 01/21/24 15:28 Height 5 ft 8 in Weight 275 lb BMI 41.8 Intake Visit Reasons: PO LT CTR 01/06/24 AR Intake Note: Walter 48 yr old male presents today for his PO LT CTR 01/06/24 AR. States symptoms have improved and is doing well. Sutures removed and streri strips applied. Allergies No Known Allergies Allergy (Verified 01/21/24 15:33) HPI PO LT CTR 01/06/24 AR HPI Details Walter is a 48 year old right hand dominant man who returns S/P left carpal tunnel release, DOS: 01/06/24 He says he is doing well and his sensation is improving, but not yet normal. He has a hx of right carpal tunnel release done 07/2016 at [facility]. 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 he says his work has already approved several weeks off post-operatively. [facility] Medical History (Updated 10/29/23 @ 15:32 by Dawson Zuniga) Hx of lymphoma, non-Hodgkins Surgical History History of endoscopy History of colonoscopy History of carpal tunnel surgery History of surgery on left wrist Family History Mother Diabetes Father Hypertension Social History Household Members: Spouse and Children Household Members Other:: Housing: House Are you a primary acute care certified nursing assistant to a significant other at home: No Do you presently have visiting nurse or other home services: No Alcohol intake: current Alcohol intake frequency: holidays/special occasions only Alcohol type: beer Comment: counts correct Patient Tobacco Use Status: Never used Tobacco e-Cigarette/Vaping Use: Never Used service: No Current occupational status: employed 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 Cognitive needs: No Hearing needs: No Vision needs: No Review of Systems Const All systems reviewed & are unremarkable except as noted in HPI and below Physical Exam Vital Signs: BMI result Body Mass Index 41.8 Const General: no acute distress and alert Orientation/consciousness: patient oriented x3 Neuro General: patient oriented x3 Extrem Other: The patient was alert oriented and in no acute distress The incision is healing well with no erythema drainage or evidence of infection. Sutures removed and Steri-Strips applied He can make a fist and extend all his digits Sensation is improving but not yet normal in the median nerve distribution Normal sensation in the ulnar nerve distribution Cap refill is brisk Nerve Conduction Study IMPRESSION: 1. This is an abnormal study. 2. There is electrodiagnostic evidence for left moderate-severe median neuropathy at the wrist, consistent with carpal tunnel syndrome. 3. There is no electrodiagnostic evidence for ulnar neuropathy, brachial plexopathy, or cervical radiculopathy. Ericka Brito MD, DOE 10/23/23 Psych Appearance: grossly normal Affect: normal affect Attitude: cooperative Assessment & Plan Assessment & Plan (1) History of carpal tunnel surgery: Comment: R wrist Code(s): Z98.890 - Other specified postprocedural states (2) Carpal tunnel syndrome of left wrist: Code(s): G56.02 - Carpal tunnel syndrome, left upper limb Plan Assessment & Plan: 1. Left carpal tunnel syndrome, S/P release DOS: 01/06/24 Pre-operatively with dense numbness Now with improving but not yet normal sensation The patient appears to be doing well post-operatively I educated him about the post-operative course I explained that it may take up to 9 months for his sensation to continue to improve I discussed activity modifications, he is to lift nothing heavier than a cellphone for the next two weeks He will perform gentle ROM exercises at home He should avoid any underwater activities for the next 5 days He should gently massage about the incision site to reduce the risk of hypersensitivity He can follow up prn 2. History of right carpal tunnel release Done in 07/2016 at [facility] No complaints of numbness today Scribed for Cecilia Pichardo MD by Dawson Zuniga, medical photographer, on 01/21/24 at 3:30 PM, EST. Coding Level of Care Code Global (87294) Diagnoses History of carpal tunnel surgery Z98.890 Carpal tunnel syndrome of left wrist G56.02
== END 2024-01-21 15:34 | disposition home or self-care (01) ==
PROVIDERS: PCP Physician Assistant; Visit Provider Orthopaedic Surgery
DX: Z98.890 Other specified postprocedural states (principal); G56.02 Carpal tunnel syndrome, left upper limb
CPT/HCPCS: 99024

== ENCOUNTER → 2024-01-21 15:08 | Outpatient (BNVA) | payer OTHER, SELFPAY | PROVIDERS: PCP Physician Assistant; Visit Provider Orthopaedic Surgery ==

== ENCOUNTER 2024-12-24 14:32 | Outpatient (AMB) | payer OTHER, SELFPAY ==
[2024-12-24 14:38] VITALS: BP 122/86; PULSE 81; O2SAT 98; BMI 41.7
--- NOTE | 2024-12-24 14:38 | A.OFFPC_ITS ---
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 Accompanied by: Self / Same As Patient Allergies No Known Allergies Allergy (Verified 12/24/24 15:10) Medication List - Last Reconciled 12/24/24 by Tigre Richard PA-C allopurinol 100 mg PO DAILY atenolol-chlorthalidone 50-25 mg 1 tab PO DAILY 90 days Tobacco use date assessed: 12/24/24 Dental Screening Dental Screen Date: 12/24/24 Did you have a dental visit in the last 12 months?: Yes Did you have a dental problem in the last 6 months where you did not have access to dental care?: No Was dental information given to patient?: Patient has dentist HPI Med Review HPI Details Patient is a 49 year old male here today for a routine annual physical.? Patient has a past medical history significant for non-Hodgkin's lymphoma, gout, hypertension, chronic lumbar spine pain. Concern--> reports having right nostril epistaxis during the winter. Attributes this to cold dry heat. PLAN: Will use .. Lymphoma:? Patient followed by oncologist and his lymphoma has been in remission.? Has elevated LFTs and did do recent ultrasound of abdomen showing a large liver ?? Fatty liver .. Gout:? No recent flares and is adherent to allopurinol. .. HTN:? Blood pressure acceptable in office. At other office visits his blood pressure is elevated. Will take precaution and start lisinopril 10 mg for better blood pressure control does not monitor blood pressure at home. ?denies any chest discomfort, headaches, vision issues. 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 [facility] Medical History Hx of lymphoma, non-Hodgkins Surgical History History of endoscopy History of colonoscopy History of carpal tunnel surgery History of surgery on left wrist Family History Mother Diabetes Lymphoma Father Hypertension Social History Household Members: Spouse and Children Household Members Other:: Housing: House Are you a primary patient care coordinator to a significant other at home: No Do you presently have visiting nurse or other home services: No Alcohol intake: current Alcohol intake frequency: holidays/special occasions only Alcohol type: beer Patient Tobacco Use Status: Never used Tobacco e-Cigarette/Vaping Use: Never Used service: No Current occupational status: employed Current occupation: [employer] hand Cognitive needs: No Hearing needs: No Vision needs: No Questionnaire PHQ-9 Over the last 2 weeks, how often have you been bothered by any of the following problems? 1. Little interest or pleasure in doing things: not at all 2. Feeling down, depressed, or hopeless: not at all 3. Trouble falling or staying asleep, or sleeping too much: not at all 4. Feeling tired or having little energy: not at all 5. Poor appetite or overeating: not at all 6. Feeling bad about yourself - or that you are a failure or have let yourself or your family down: not at all 7. Trouble concentrating on things, such as reading the newspaper or watching television: not at all 8. Moving or speaking so slowly that other people could have noticed. Or the opposite - being so fidgety or restless that you have been moving around a lot more than usual: not at all 9. Thoughts that you would be better off or of hurting yourself in some way: not at all Total score: 0 Depression Screening Interpretation: Negative Depression Screening Done: Yes 25844 - PHQ-9 Billing: Yes Source: Developed by Drs. Toribio Cleaning, Anila Lopez, Brent Yuen and colleagues, with an educational olivier from [employer]. Thrive Questionnaire Date Thrive assessed: 12/24/24 I am a: Patient What is your living situation today?: I have a steady place to live Within the past 12 months, did the food you bought not last and you didn't have the money to get more?: Never true Within the past 12 months, did you worry whether your food would run out before you got money to buy more?: Never true Do you have trouble paying for medicines?: No Do you have trouble getting transportation to medical appointments?: No Do you have trouble paying your heating and electricity bill?: No Do you have trouble taking care of your child, family member or friend?: No Do you have trouble with day-to-day activities such as bathing, preparing meals, shopping, managing finances, etc.?: No Are you currently unemployed and looking for a job?: No Are you interested in more education?: No Please select the resources that you would like help with: None Currently or been in a relationship where the following occur: No concerns reported THRIVE Score: 0 AUDIT C Alcohol Use Questionnaire (AUDIT-C) 1. How often do you have a drink containing alcohol?: 2-3 times a week 2. How many drinks containing alcohol do you have on a typical day when you are drinking?: 5 or 6 (6 beers during weekends) 3. How often do you have six or more drinks on one occasion?: Never Total Score: 5 LEO-7 AMB Questionnaire LEO-7 Date LEO - 7 assessed: 12/24/24 Feeling nervous, anxious, or on edge: 0 = Not at all Not being able to stop or control worryin = Not at all Worrying too much about different things: 0 = Not at all Trouble relaxin = Not at all Being so restless that it is hard to sit still: 0 = Not at all Becoming easily annoyed or irritable: 0 = Not at all Feeling afraid as if something awful might happen: 0 = Not at all Total LEO-7 score (0-4 normal; 5-9 mild; 10-14 moderate; 15-21 severe): 0 Source: Developed by Drs. Toribio Cleaning, Anila Lopez, Brent Yuen and colleagues, with an educational olivier from [employer]. Review of Systems Const Denies body aches, Denies chills, Denies excessive sweating, Denies fatigue, Denies fever(s) and Denies headache(s) Eyes Denies blurry vision ENT Denies dysphagia, Denies vertigo, Denies dizziness, Denies headache(s), Denies hearing loss and Denies tinnitus Card Denies chest pain, Denies chest pain with activity, Denies syncope, Denies irregular heart rhythm and Denies dyspnea Resp Denies chest congestion, Denies cough, Denies hemoptysis, Denies dyspnea and Denies wheezing GI Denies abdominal pain, Denies melena, Denies hematochezia, Denies coffee ground emesis, Denies dysphagia, Denies diarrhea, Denies nausea and Denies vomiting Denies difficulty urinating, Denies dysuria, Denies urinary frequency, Denies urinary hesitancy and Denies urinary urgency Musc Denies arthralgias, Denies limited range of motion, Denies muscle cramps and Denies muscle weakness Skin/Breast Denies rash and Denies skin ulcer Neuro Denies Abnormal speech present, Denies confusion, Denies vertigo, Denies dizziness, Denies syncope, Denies headache(s), Denies memory loss and Denies seizure-like activity Psych Denies anxiety, Denies confusion, Denies depression, Denies memory loss, Denies panic attacks and Denies paranoia Endo Denies excessive sweating, Denies fatigue, Denies flushing, Denies polydipsia and Denies polyuria Aller/Immun Denies wheezing Physical exam (Primary Care) Vital Signs: Last Vital Signs Pulse 81 12/24/24 14:38 BP 122/86 12/24/24 14:38 Pulse Ox 98 12/24/24 14:38 Oxygen Delivery Method Room Air 12/24/24 14:38 BMI result Body Mass Index 41.7 BMI Assessment/Plan discussion: High BMI High, discussed plan: lifestyle, weight reduction, dietary and physical activity Tobacco/Smoking Status: Tobacco use Status Tobacco use date assessed 12/24/24 12/24/24 14:44 Patient Tobacco Use Status Never used Tobacco 12/24/24 14:44 e-Cigarette/Vaping Use Never Used 12/24/24 14:44 PHQ-9: PHQ-9 Score PHQ-9: Total score 0 12/24/24 14:44 Depression Screening Interpretation: Negative Thrive Assessment: Date of Thrive Assessment Date Thrive assessed 12/24/24 12/24/24 14:44 Currently or been in a relationship where the following occur: No concerns reported Const General: cooperative, comfortable, no acute distress, alert and awake; No confusion Orientation/consciousness: oriented to person, oriented to place, patient oriented x3 and No confusion HENMT Head: Yes normocephalic Ears: external ears normal and TM's normal bilaterally Face and sinus: No sinus tenderness Mouth: Normal oral and palatal mucosa present and tongue normal Teeth and gingiva: dentition normal and gingiva normal Throat: Yes posterior oropharynx normal, Yes tonsils normal and Yes uvula midlin e Eyes Conjunctivae: conjunctivae normal Sclerae: sclerae normal Pupils: Equal, round and reactive pupils present EOM: EOMs intact bilaterally Direct Ophthalmoscopy: No no photophobia Neck Neck: Yes no lymphadenopathy, No tender and Yes no JVD Thyroid: Thyroid normal Carotids: no bruits Chest Chest palpation & inspection: no tenderness Resp Effort & Inspection: normal respiratory effort, no audible wheezes, not labored and no stridor Auscultation: no crackles, no rales, no rhonchi and no wheezes Cardio Jugular venous distension: no JVD Rate: regular rate, not bradycardic and not tachycardic Rhythm: regular rhythm Bruits: no carotid bruits Peripheral pulses: Peripheral pulses 2+ throughout GI Inspection: Yes normal to inspection, No abdominal wall ecchymosis and No visible herniation Palpation (GI): Soft to palpation, nontender, no guarding, not rigid and No hepatosplenomegaly present Auscultation: normoactive bowel sounds General: Yes no CVA tenderness Back/Spine/Pelvis Back: no CVA tenderness and No back tenderness Cervical Spine: cervical ROM normal Thoracic/Lumbar Spine: thoracic and lumbar spine normal to inspection, straight leg raise negative bilaterally, No thoraco-lumbar ROM limited and No lumbar spinal tenderness Skin Lesions: no lesions Rashes: no rashes Wounds: no wounds Neuro General: oriented to person, oriented to place, patient oriented x3, CN's II-XI intact bilaterally and No confusion Cranial nerves: Yes Equal, round and reactive pupils present and Yes Normal accommodation reflex present Cognition (Neuro): normal cognition Speech: No Abnormal speech present Gait exam (Neuro): Normal gait present Motor exam (neuro): 5/5 motor strength present throughout Extrem Right upper extremity: full ROM; no cyanosis Left upper extremity: full ROM; no cyanosis Right lower extremity: no edema Left lower extremity: no edema Psych Appearance: grossly normal Mental Status: mental status grossly normal Affect: normal affect Attitude: cooperative Thought process: Normal thought process present Coding Level of Care Code Est Pt Prev Care 40-64y(24904) Diagnoses Annual physical exam Z00.00 Hodgkin lymphoma of lymph nodes of axilla, unspecified Hodgkin lymphoma type C81.94 Hodgkin lymphoma type: unspecified type Lymphoma site: axillary Primary hypertension I10 Hypertension type: primary hypertension Carcinoid tumor of rectum, 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 Carcinoid tumor malignancy status: unspecified whether malignant Class 3 obesity E66.813 Additional Codes PHQ-9 - 61588 - PHQ-9 Billing: Yes ([id number]) Assessment & Plan Assessment & Plan (1) Annual physical exam: Code(s): Z00.00 - Encounter for general adult medical examination without abnormal findings Category: Medical Plan: As scheduled (2) Hodgkins lymphoma: Code(s): C81.90 - Hodgkin lymphoma, unspecified, unspecified site Category: Medical Qualifiers: Hodgkin lymphoma type: unspecified type Lymphoma site: axillary Qualified Code(s): C81.94 - Hodgkin lymphoma, unspecified, lymph nodes of axilla and upper limb Plan: Continues to follow Oncology here in [place]. He reports he has treatment every 6 months. (3) HTN (hypertension): Code(s): I10 - Essential (primary) hypertension Category: Medical Qualifiers: Hypertension type: primary hypertension Qualified Code(s): I10 - Essential (primary) hypertension Plan: Patient's blood pressure appears to be generally elevated. Today in office normal. Will start lisinopril 10 mg in addition to his atenolol chlorthalidone. Advised to monitor blood pressure at home with goal blood pressure to be below 140/90 (4) Rectal carcinoid tumor: Comment: Patient expresses his gratitude for being diagnosed and treated-use very happy with the outcome Reviewed report/pathology Dr. Villegas- - Code(s): D3A.026 - Benign carcinoid tumor of the rectum Category: Medical Qualifiers: Carcinoid tumor malignancy status: unspecified whether malignant Qualified Code(s): D3A.026 - Benign carcinoid tumor of the rectum Plan: Was found to have a rectal carcinoid tumor and most recent colonoscopy. Will be following up with GI in February of 2025. Ensure compliance with follow-up colonoscopy scheduled. Maintain regular surveillance and adhere to the follow-up plan. (5) Class 3 obesity: Code(s): E66.813 - Obesity, class 3 Category: Medical Plan: Patient does understand his BMI is over 40 and will work on being more physically active and adapting to better eating habits Orders: Orders Comprehensive Bath. Panel Fast Today I10 - Essential (primary) hypertension Complete Blood Count no Diff Today I10 - Essential (primary) hypertension Prostate Specific Antigen Scr Today I10 - Essential (primary) hypertension, Z12.5 - Encounter for screening for malignant neoplasm of prostate Medications: New lisinopril 10 mg PO DAILY 90 days 90 tabs 1RF I10 - Essential (primary) hypertension Patient Instructions: Goal: Blood pressure to be below 140/90 Barriers: Adherence to physical activity and healthy eating habits
== END 2024-12-24 15:28 | disposition home or self-care (01) ==
LOC: HO.HMCH 14:32
PROVIDERS: PCP Physician Assistant; Visit Provider Physician Assistant
DX: Z00.00 Encounter for general adult medical examination without abnormal findings (principal); C81.94 Hodgkin lymphoma, unspecified, lymph nodes of axilla and upper limb; E66.813 Obesity, class 3; Z68.41 Body mass index [BMI] 40.0-44.9, adult; D3A.026 Benign carcinoid tumor of the rectum; I10 Essential (primary) hypertension

== ENCOUNTER → 2024-12-24 14:32 | Outpatient (BNVA) | payer OTHER, SELFPAY | PROVIDERS: PCP Physician Assistant; Visit Provider Physician Assistant | DX: Z00.00 Encounter for general adult medical examination without abnormal findings (principal); C81.94 Hodgkin lymphoma, unspecified, lymph nodes of axilla and upper limb; I10 Essential (primary) hypertension; D3A.026 Benign carcinoid tumor of the rectum; E66.813 Obesity, class 3; Z68.41 Body mass index [BMI] 40.0-44.9, adult | CPT/HCPCS: 96127 ==

== ENCOUNTER 2025-01-12 06:15 | Outpatient (REF) | payer OTHER, SELFPAY ==
[2025-01-12 07:18] LABS: Hematocrit 48.1 % (42.0-52.0); Hemoglobin 17.6 g/dl (14.0-18.0); Mean Corpuscular HGB Conc 36.6 g/dl (31.0-36.0); Mean Corpuscular Hemoglobin 31.3 pg (27.0-33.0); Mean Corpuscular Volume 85.6 fL (80.0-98.0); Platelet Count 110 X10*3/uL (160-400); Red Blood Count 5.62 X10*6/uL (4.60-5.80); White Blood Count 6.9 X10*3/uL (4.8-10.8)
[2025-01-12 07:38] LABS: Alanine Aminotransferase 46 U/L (0-40); Albumin Level 4.1 g/dL (3.5-5.0); Alkaline Phosphatase 155 U/L (39-117); Anion Gap 13 (12-20); Aspartate Amino Transferase 72 U/L (5-37); Bilirubin Total 1.7 mg/dL (0.0-1.0); Blood Urea Nitrogen 7 mg/dL (9-16); Carbon Dioxide 27 mmol/L (22-29); Chloride 95 mmol/L (96-108); Estimated Glomerular Filt Rate > 60; Glucose Fasting 115 mg/dL (60-99); Potassium 3.4 mmol/L (3.3-5.1); Sodium 132 mmol/L (135-145); Total Protein 8.3 g/dL (6.5-8.0)
[2025-01-14 11:41] LABS: Iron 181 mcg/dL (45-160); Percent Iron Saturation 49 % (15-50); Total Iron Binding Capacity 367 mcg/dL (228-428); Unsaturated Iron Binding 186 ug/dL
[2025-01-14 11:54] LABS: Ferritin 568 ng/mL (20-250)
== END 2025-01-12 06:16 | disposition home or self-care (01) ==
LOC: HO.LAB 06:15
PROVIDERS: Nurse Practitioner Family; PCP Physician Assistant; Visit Provider Physician Assistant
DX: I10 Essential (primary) hypertension (principal); Z12.5 Encounter for screening for malignant neoplasm of prostate; R79.89 Other specified abnormal findings of blood chemistry
CPT/HCPCS: 36415; 80053; 82728; 83540; 84153; 85027

== ENCOUNTER 2025-01-19 06:02 | Outpatient (REF) | payer OTHER, SELFPAY ==
[2025-01-19 08:16] LABS: Anion Gap 13 (12-20); Blood Urea Nitrogen 16 mg/dL (9-16); Carbon Dioxide 27 mmol/L (22-29); Chloride 102 mmol/L (96-108); Estimated Glomerular Filt Rate > 60; Glucose Random 81 mg/dL (60-115); Potassium 3.9 mmol/L (3.3-5.1); Sodium 138 mmol/L (135-145)
== END 2025-01-19 06:03 | disposition home or self-care (01) ==
LOC: HO.LAB 06:02
PROVIDERS: PCP Physician Assistant; Visit Provider Physician Assistant
DX: E87.1 Hypo-osmolality and hyponatremia (principal)
CPT/HCPCS: 36415; 80048

== ENCOUNTER 2025-02-26 15:00 | Outpatient (AMB) | payer OTHER, SELFPAY ==
--- NOTE | 2025-02-26 15:06 | MHC.OFFVIS ---
Vital Signs 02/26/25 15:09 Height 5 ft 8 in Weight 249 lb 1.957 oz BMI 37.9 BP 143/73 H Blood Pressure Location Lt brachial Position Sitting Pulse 70 Intake Visit Reasons: Rectalcarcinima tumor/[facility] pt R/S from 12/07/24 Intake Note: Walter presents in the office as a [facility] patient for a rectal carcinoma tumor. CC: He states that he is not having any concerns at this time! 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 EGD/colo 2021 (Dr Taylor) for abd pain, screening. 6 mm rectal NET completely removed with negative margins, well differentiated, low Ki67 index. Follow up EUS April 2023 without any residual NET. Recommendation was made for follow up colo in a year for which he is over due. Reports he was away in and returned December. Currently no abd pain, N,V, rectal bleeding. No change in bowel habits. No anemia noted on labs. Thromboctopenia is chronic. EGD at that time with H Pylori gastritis which has been eradicated. JOSE 11/2022 is NEGATIVE. PFSH Medical History Hx of lymphoma, non-Hodgkins Surgical History History of endoscopy History of colonoscopy History of carpal tunnel surgery History of surgery on left wrist Family History Mother Diabetes Lymphoma Father Hypertension Social History Household Members: Spouse and Children Household Members Other:: Housing: House Are you a primary child care specialist to a significant other at home: No Do you presently have visiting nurse or other home services: No Alcohol intake: current Alcohol intake frequency: holidays/special occasions only Alcohol type: beer Patient Tobacco Use Status: Never used Tobacco e-Cigarette/Vaping Use: Never Used service: No Current occupational status: employed 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 Cognitive needs: No Hearing needs: No Vision needs: No Review of Systems Const All systems reviewed & are unremarkable except as noted in HPI and below Physical Exam Vital Signs: Last Vital Signs Pulse 70 02/26/25 15:09 BP 143/73 H 02/26/25 15:09 BMI result Body Mass Index 37.9 No apparent distress, with obesity Nonicteric Abdomen soft, nondistended Alert and oriented x3, normal gait Assessment & Plan Assessment & Plan (1) Neuroendocrine neoplasm of rectum: Code(s): D3A.8 - Other benign neuroendocrine tumors Category: Medical (2) Thrombocytopenia: Code(s): D69.6 - Thrombocytopenia, unspecified Category: Medical (3) Elevated LFTs: Code(s): R79.89 - Other specified abnormal findings of blood chemistry Category: Medical Plan 1. Rectal NET Low Ki index however recommendation was made for suveillance colo in 2023 for which pt is overdue. Plan: - Urgent colo to be booked - PEG prep Rxed and instructions reviewed. Handout given. 2. Elevated LFTs and thrombocytopenia noted SUspect underlying liver disease. Hep serologies negative. Labs ordered to r.o other causes of chronic liver disease. Plan: - US Abd ordered - Labs ordered Follow up after colo Orders: Orders Alpha 1 Anti-trypsin Today R79.89 - Other specified abnormal findings of blood chemistry Ceruloplasmin Today R79.89 - Other specified abnormal findings of blood chemistry Gamma Glutamyl Transpeptidase Today R79.89 - Other specified abnormal findings of blood chemistry Immunoglobulin A Today R79.89 - Other specified abnormal findings of blood chemistry Immunoglobulin G Today R79.89 - Other specified abnormal findings of blood chemistry Transglutaminase IgA Today R79.89 - Other specified abnormal findings of blood chemistry Prothrombin Time INR Today R79.89 - Other specified abnormal findings of blood chemistry Mitochondrial Antibody Today R79.89 - Other specified abnormal findings of blood chemistry US abdomen complete Today D69.6 - Thrombocytopenia, unspecified Alpha Fetoprotein Today R79.89 - Other specified abnormal findings of blood chemistry SAMUEL Reflex Titer and Pattern Today R79.89 - Other specified abnormal findings of blood chemistry Ferritin Today R79.89 - Other specified abnormal findings of blood chemistry Hemoglobin A1c Today R79.89 - Other specified abnormal findings of blood chemistry HIV Ab/Ag Today R79.89 - Other specified abnormal findings of blood chemistry IRON PROFILE Today R79.89 - Other specified abnormal findings of blood chemistry Lipid Panel Today R79.89 - Other specified abnormal findings of blood chemistry TSH reflex Free T4 Today R7. - Other specified abnormal findings of blood chemistry Phosphatidylethanol, Blood Today R7. - Other specified abnormal findings of blood chemistry Liver Kidney Microsomal Ab Today R7 - Other specified abnormal findings of blood chemistry Medications: New peg 3350-electrolytes 236-22.74-6.74 -5.86 gram (Golytely) as per split prep instructions, until fecal effluent is clear 240 mL PO Q10M 4,000 mL 0RF colonoscopy Coding Level of Care Code Est Pt Level 4 (30066) Diagnoses Neuroendocrine neoplasm of rectum D3A.8 Thrombocytopenia D69.6 Elevated LFTs R79.89
[2025-02-26 15:09] VITALS: BP 143/73; PULSE 70; BMI 37.9
== END 2025-02-26 16:17 | disposition home or self-care (01) ==
LOC: HO.HGI 15:00
PROVIDERS: PCP Physician Assistant; Visit Provider Internal Medicine
DX: D3A.8 Other benign neuroendocrine tumors (principal); D69.6 Thrombocytopenia, unspecified; R79.89 Other specified abnormal findings of blood chemistry
CPT/HCPCS: 99214

== ENCOUNTER → 2025-02-26 15:00 | Outpatient (BNVA) | payer OTHER, SELFPAY | PROVIDERS: PCP Physician Assistant; Visit Provider Internal Medicine ==

== ENCOUNTER 2025-03-19 11:16 | Day surgery (SDC) | payer OTHER, SELFPAY ==
--- NOTE | 2025-03-18 09:52 | HO.ANESPROP2 ---
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 (Acute) Rectal carcinoid tumor (Acute) Hodgkins lymphoma (Acute) Gout attack (Acute) HTN (hypertension) (Acute) Annual physical exam (Acute) RLQ abdominal pain (Acute) Obese (Acute) Postprandial abdominal bloating (Acute) Encounter for screening colonoscopy (Acute) Inguinal hernia (Acute) Umbilical hernia (Acute) Past Medical History Medical History Gout HTN (hypertension) Hx of lymphoma, non-Hodgkins Family History Family History Mother Diabetes Lymphoma Father Hypertension Family history of problems with anesthesia: No Surgical History Surgical History History of endoscopy History of colonoscopy History of carpal tunnel surgery History of surgery on left wrist History of Problems with Anesthesia: No Social History Social History Household Members: Spouse and Children Household Members Other:: Housing: House Are you a primary career development specialist to a significant other at home: No Do you presently have visiting nurse or other home services: No Alcohol intake: current Alcohol intake frequency: holidays/special occasions only Alcohol type: beer Patient Tobacco Use Status: Never used Tobacco e-Cigarette/Vaping Use: Never Used Use of substances other than those prescribed or required for medical reasons: No Have you been hit, kicked, punched, or otherwise hurt by someone within the past year? 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 Cognitive needs: No Hearing needs: No Vision needs: No Meds Allergies Allergy/AdvReac Type Severity Reaction Status Date / Time No Known Allergies Allergy Verified 03/19/25 11:43 Exam Pertinent Lab Results Pertinent Lab Results: Laboratory Tests 01/12/25 01/19/25 06:32 06:13 WBC 6.9 Hgb 17.6 Hct 48.1 Plt Count 110 L Sodium 138 Potassium 3.9 Chloride 102 Carbon Dioxide 27 BUN 16 Creatinine 0.81 Assessment and Plan Assessment Anesthesia Assessment: Chart Reviewed Final Anesthetic Review Family History of Problems with Anesthesia: No History of Problems with Anesthesia: No Documented by User: Emerald Wolfe MD 03/19/25 12:02 PMFSH Past Medical History Medical History Gout HTN (hypertension) Hx of lymphoma, non-Hodgkins Family History Family History Mother Diabetes Lymphoma Father Hypertension Surgical History Surgical History History of endoscopy History of colonoscopy History of carpal tunnel surgery History of surgery on left wrist Social History Social History Household Members: Spouse and Children Household Members Other:: Housing: House Are you a primary career development specialist to a significant other at home: No Do you presently have visiting nurse or other home services: No Alcohol intake: current Alcohol intake frequency: holidays/special occasions only Alcohol type: beer Patient Tobacco Use Status: Never used Tobacco e-Cigarette/Vaping Use: Never Used Use of substances other than those prescribed or required for medical reasons: No Have you been hit, kicked, punched, or otherwise hurt by someone within the past year? 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 Cognitive needs: No Hearing needs: No Vision needs: No Meds Allergies Allergy/AdvReac Type Severity Reaction Status Date / Time No Known Allergies Allergy Verified 03/19/25 11:43 Exam Airway Mallampati Class: III TM Dist: <=3cm Heart: rrr Lungs: cta Assessment and Plan Assessment Anesthesia Assessment: Anesthesia Plan Discussed Final Anesthetic Review NPO: Yes ASA Class: III Final Preanesthetic Review: No Changes in Pt Med Stat, Meds/Allgs Chart Reviewed, Consent Obtained/Reviewed and Anes Risks/Benef Reviewed Patient Risk: Intermediate Procedure Risk: Low Anesthetic Plan Anesthetic Plan: MAC: Disposition: Standard PACU
[2025-03-19 11:50] VITALS: BP 176/89; PULSE 100; RESP 18; TEMP 36.6; O2SAT 96; BMI 37.4
[2025-03-19] MEDS: Lactated Ringers 1,000 ML 100 ML IVCONT (11:53)
--- NOTE | 2025-03-19 12:18 | MHC.SHP ---
Pre-Procedural Eval Section A - 24 Hr Update-Section A only Date of Service: 03/19/25 The patient is an INPATIENT: No The patient has been examined within 24 hours of the surgical procedure. The History & Physical has been completed within 30 days and I have reviewed it.: Yes Section B - Complete if H&P > 30 days Chief Complaint: Other benign neuroendocrine tumors Allergies: Allergies Allergy/AdvReac Type Severity Reaction Status Date / Time No Known Allergies Allergy Verified 03/19/25 11:43 Plan Diagnosis/Plan: Unchanged I have reviewed the history and physical and performed a pertinent physical examination on my patient. No changes have occurred unless specified. Time Spent With Patient Time: Total time managing care of this patient today ____ minutes.
[2025-03-19 13:39] VITALS: BP 110/69; PULSE 100; RESP 14; TEMP 36.6; O2SAT 97
--- NOTE | 2025-03-19 13:40 | P.OPN-COLO_ITS ---
Colonoscopy Operative Note Operative Note Date of Service: 03/19/25 Narrative: Procedure: Colonoscopy Indication: history of rectal NET Endoscopist: Sakshi Krueger MD Anesthesia Provider: Lara Lyman CRNA Anesthesia type: MAC Instrument: Olympus [id number]-H190L Consent: Indication, risks vs benefits, and alternatives were discussed with the patient who gave written informed consent to proceed. EKG, pulse, pulse oximetry and blood pressure were monitored throughout the procedure. Please see anesthesia flowsheet. Procedure: The patient was brought to the procedure room and placed in the left lateral decubitus position. IV medications were administered by the anesthesia provider in attendance. A digital rectal exam was performed which was normal. A distal attachment cap was affixed to the tip of the colonoscope which was then inserted through the anus and advanced through the colon to the cecum at 75 cm,and terminal ileum. Appendiceal orifice and ileocecal valve were identified. Mucosa was carefully examined under high definition white light as the instrument was slowly withdrawn in a retrograde panoramic fashion. Retroflexion was performed in rectum. The procedure was not difficult. There were no immediate obvious complications. The quality of the prep was BBPS: 3+2+3 = adequate Withdrawal time 11 minutes. Limitations: No limitations. Findings: Mucosa: Normal to cecum and terminal ileum. Specifically the rectal mucosa appeared normal under HDWL and NBI. Protruding lesions: * 1 sessile polyp of size 5 mm in sigmoid colon. Cold snare polypectomy was performed. The polyp was completely removed and retrieved. * Large internal hemorrhoids without stigmata of recent bleeding. Impression: 1. Normal colon and terminal ileum mucosa 2. Total of 1 polyp removed 3. Internal hemorrhoids Recommendations: - Follow path results. - Repeat colonoscopy in 5 years for rectal NET surveillance. If no recurrence noted on that colo either can revert to routine screening intervals.
[2025-03-19 13:45] VITALS: BP 119/71; PULSE 101; RESP 14; O2SAT 97
[2025-03-19 14:00] VITALS: BP 140/91; PULSE 101; RESP 14; O2SAT 97
[2025-03-19 14:15] VITALS: BP 144/84; PULSE 96; RESP 14; TEMP 36.6; O2SAT 97
== END 2025-03-19 15:04 | disposition home or self-care (01) ==
PROVIDERS: PCP Physician Assistant; Visit Provider Internal Medicine
PROC: 0DJD8ZZ Inspection of Lower Intestinal Tract, Via Natural or Artificial Opening Endoscopic (ICD-10-PCS; CPT 45378; principal; 2025-03-19 13:10)
DX: D3A.026 Benign carcinoid tumor of the rectum (principal); Z85.72 Personal history of non-Hodgkin lymphomas; K64.8 Other hemorrhoids; D12.5 Benign neoplasm of sigmoid colon; R79.89 Other specified abnormal findings of blood chemistry; I10 Essential (primary) hypertension; D69.6 Thrombocytopenia, unspecified; E66.9 Obesity, unspecified; Z68.37 Body mass index [BMI] 37.0-37.9, adult; Z79.899 Other long term (current) drug therapy; Z98.890 Other specified postprocedural states
CPT/HCPCS: 45385; 88305; J1805; J2003; J2250; J2704

== ENCOUNTER → 2025-03-19 11:16 | Outpatient (BNV) | payer OTHER, SELFPAY | PROVIDERS: PCP Physician Assistant; Visit Provider Internal Medicine | DX: Z12.11 Encounter for screening for malignant neoplasm of colon (principal); Z85.040 Personal history of malignant carcinoid tumor of rectum; D12.5 Benign neoplasm of sigmoid colon; K64.8 Other hemorrhoids | CPT/HCPCS: 45385 ==

== ENCOUNTER 2025-04-15 08:34 | Outpatient (REF) | payer OTHER, SELFPAY ==
--- NOTE | ~2025-04-15 | US_ITS ---
CLINICAL HISTORY: D69.6 - Thrombocytopenia, unspecified US abdomen complete Comparison: None provided Findings: The visualized pancreas is normal. The aorta and inferior vena cava are normal caliber. The liver is moderately enlarged measuring 19 cm in craniocaudal dimension with nodular contour. There is no intrahepatic bile duct dilatation. The common duct is 3 mm in diameter. The gallbladder is normal. There is no sonographic Garner sign. The main portal vein is antegrade. The right kidney is 12.4 cm in length. The left kidney is 12.4 cm in length. A 1.6 cm cyst is noted within the midpole. The spleen is normal. No ascites. IMPRESSION: 1. Moderate hepatomegaly with nodular contour. 2. 1.6 cm left kidney midpole cyst. This document has been electronically signed by: Arline Britton MD on 04/15/2025 22:36:16
== END 2025-04-15 08:35 | disposition home or self-care (01) ==
LOC: HO.US 08:34
PROVIDERS: PCP Physician Assistant; Visit Provider Internal Medicine
DX: D69.6 Thrombocytopenia, unspecified (principal)
CPT/HCPCS: 76700

== ENCOUNTER → 2025-04-15 08:36 | Outpatient (BNV) | payer OTHER, SELFPAY | PROVIDERS: PCP Physician Assistant; Visit Provider Student in an Organized Health Care Education/Training Program | DX: N28.1 Cyst of kidney, acquired (principal) | CPT/HCPCS: 76700 ==